=== PATIENT | female | born 1940 | race Caucasian/White ===

== ENCOUNTER 2017-11-29 10:38 | Observation (INO) | payer OTHER, BC ==
[2017-11-29] MEDS ORDERED: NS 1,000 ML IV ONE (11:32)
[2017-11-29] MEDS ORDERED: diphenhydrAMINE 25 MG CAP PO ONE ×2 (11:32→12:12)
[2017-11-29] MEDS ORDERED: ceFAZolin 2 GM/DEXTROSE 100 ML IV ONE (11:32)
[2017-11-29] MEDS ORDERED: BACITRACIN IRRIGATION/NS 50,000 UNITS/1,000 ML BTL IRR ONE (11:32)
[2017-11-29] MEDS ORDERED: DIAZEPAM 5 MG TAB PO ONE (11:32)
--- NOTE | 2017-11-29 11:49 | PDHPUP ---
History & Physical Update H&P update statement: This history and physical update is based on an assessment of the patient which was completed after admission or registration (within 24 hours), but prior to the surgery/procedure. H&P update: H&P reviewed & patient examined, no change in patient's condition since H&P completed
--- NOTE | 2017-11-29 11:50 | PDPROPOC ---
Sedation Plan of Care Sedation Plan of Care: vital signs stable, mental status noted, patient educated of risks, benefits, alternatives, patient can tolerate sedation ASA Classification: ASA 2 Planned drugs: fentanyl, midazolam Mallampati Score: Class 1 Mallampati Reference Image: Patient passed 3-3-2 rule?: Yes
--- NOTE | 2017-11-29 12:07 | CPEKG ---
Heart Rate: 84 RR Interval: 714 QRSD Interval: 104 QT Interval: 396 QTC Interval: 469 QRS [place]: 148 T Wave [place]: -76 EKG Severity - ABNORMAL ECG - EKG Impression: ATRIAL FIBRILLATION, V-RATE 74-97 EKG Impression: PROBABLE RIGHT VENTRICULAR HYPERTROPHY EKG Impression: BORDERLINE T ABNORMALITIES, INFERIOR LEADS Electronically Signed By: Candelario Ojeda 01-Dec-2017 07:31:22
[2017-11-29] MEDS ORDERED: DIAZEPAM 5 MG TAB ONE (12:12)
[2017-11-29] MEDS ORDERED: VANCOMYCIN PHARMACY TO DOSE MISC SCH (12:45)
[2017-11-29 12:50] LABS: PLATELET COUNT 207 10^3/uL (150-400)
[2017-11-29 12:53] LABS: INR 1.73 (0.83-1.16); PROTIME(PATIENT) 20.4 SEC (12.0-15.0)
[2017-11-29] MEDS ORDERED: VANCOMYCIN 1.5 GM in NS 250 ML IV ONE (13:00)
[2017-11-29] MEDS ORDERED: LIDOCAINE 1% 300 MG/30 ML SDV ONE (13:28)
[2017-11-29] MEDS ORDERED: IOPAMIDOL (ISOVUE-300) 50 ML VIAL ONE (13:28)
[2017-11-29] MEDS ORDERED: fentaNYL 100 MCG/2 ML INJ ONE ×2 (13:29→14:26)
[2017-11-29] MEDS ORDERED: LIDO/EPI 1% **for epidural** 30 ML SDV ONE (13:29)
[2017-11-29] MEDS ORDERED: BUPIVACAINE 0.5% 30 ML SDV ONE (13:29)
[2017-11-29] MEDS ORDERED: MIDAZOLAM 2 MG/2 ML VIAL ONE ×2 (13:29)
--- NOTE | 2017-11-29 14:57 | PDCTREPORT ---
Cardiothoracic Procedure Rpt Cardiothoracic Procedure Report: Procedure: Implantation of a single-chamber pacemaker. Indications syncope, atrial fibrillation with greater than 6 sec pauses. After obtaining informed consent patient brought to the cardiac catheterization lab in the fasting state INR was 1.7. The left subclavian fossa was sterilely prepped and draped and infiltrated with 2% xylocaine. Venogram was performed revealing a widely patent vein on the left side. Patient's anatomy is distorted secondary to shoulder surgery and mastectomy. Using a 10 blade an incision was made through the skin. Using a combination of sharp and blunt dissection the Bovie catheter a pacemaker pocket was created. Bacitracin soaked sponge was placed in the pocket. Using an 18 gauge percutaneous needle attempts were made to cannulate the subclavian vein under fluoroscopy. Multiple attempts were made. Subclavian artery was entered x3. Ultimately subclavian vein was appropriately entered and a guidewire advanced into the right heart. Under fluoroscopy there was no pneumothorax. Bleeding was well controlled in the pocket. Patient was stable hemodynamically. Using 8 Swedish safety sheath lead was advanced into the right ventricular septum. Appropriate sensitivities and thresholds were confirmed and the sheath was torn away. The lead was secured to the fascia using 0 Ethibond x2. Generator was delivered to the field and attached to the lead. Set screw was tightened per industry standards. The pocket was copiously irrigated with bacitracin after removing the sponge. The device was coiled into the pocket. Three-layer closure was used to close the incision. Pressure dressing was applied the patient is taken to recovery for continued care. Stat chest x-ray will be reviewed primarily. Serial hematocrits will be followed. Ventricular capture was at 0.5 volts with a pulse with a 0.4 millisecond sensing was 6.3 m V. Impedance was 690 Ohms. The lead is a tendril MPI serial number [id number]. The device is an Assurity MRI serial [id number]. Conclusions: Successful implantation of a single-chamber pacemaker Complications: Arterial stick x3. Difficult anatomy requiring multiple attempts at access. Plan to rule out pneumothorax. Follow for blood loss. Clinical follow-up in the PCU.
--- NOTE | 2017-11-29 16:02 | CPEKG ---
Heart Rate: 86 RR Interval: 698 QRSD Interval: 100 QT Interval: 412 QTC Interval: 493 QRS [place]: 114 T Wave [place]: -85 EKG Severity - ABNORMAL ECG - EKG Impression: ATRIAL FIBRILLATION, V-RATE 69-124 EKG Impression: PROBABLE RIGHT VENTRICULAR HYPERTROPHY EKG Impression: BORDERLINE T ABNORMALITIES, INFERIOR LEADS EKG Impression: BORDERLINE PROLONGED QT INTERVAL Electronically Signed By: Candelario Ojeda 01-Dec-2017 07:31:29
[2017-11-29] MEDS ORDERED: PRAVASTATIN SODIUM 20 MG TAB PO SCH (21:00)
[2017-11-30] MEDS: TIMOLOL 0.5% 15 ML OPHT.BTL EACHEYE SCH ×2 (00:15→08:06)
[2017-11-30 07:22] VITALS: BP 108/81
[2017-11-30] MEDS ORDERED: DIMETHICONE TP SCH (09:00)
[2017-11-30] MEDS ORDERED: FUROSEMIDE 20 MG TAB PO SCH (09:00)
--- NOTE | 2017-11-30 10:04 | SOAPPROG ---
SOAP Progress Note Assessment/Plan: Assessment: 1. Sick sinus syndrome status post implantation of a single-chamber pacemaker 2. Atrial fibrillation Procedures: Implantation of a single-chamber pacemaker Stable hemodynamics overnight. Postprocedure chest x-ray revealed no pneumothorax despite complexity of procedure. H and H remained stable. Device working appropriately this morning. Delayed x-ray for delayed pneumothorax. Home with one-week follow-up for wound care. Resume anticoagulation 11/30/17 10:02 Subjective: No pain, no shortness of breath, no cough. Cardiac review of systems is negative for chest pain, shortness of breath, PND , orthopnea, palpitations, syncope, near syncope, edema. Objective: Vital Signs Temp Pulse Resp BP Pulse Ox 36.8 C 75 18 108/81 H 96 11/30/17 07:21 11/30/17 07:21 11/30/17 07:21 11/30/17 07:21 11/30/17 07:21 Laboratory Results 11/30/17 07:20 11/29/17 12:15 11/29/17 11/30/17 12/01/17 05:59 05:59 05:59 Intake Total 500 Balance 500 PT 20.4 SEC (12.0-15.0) H 11/29/17 12:15 INR 1.73 (0.83-1.16) H 11/29/17 12:15 Physical Exam - Physical Exam General Appearance: alert, no apparent distress Neck: non-tender, full range of motion Respiratory: chest non-tender, lungs clear Cardiac/Chest: irregularly irregular (Pacer site free of erythema/edema/bleeding ) ICD10 Worksheet Patient Problems: Problems Problem Status Onset Atrial fibrillation Acute Pacemaker Acute Sick sinus syndrome Acute Syncope Acute - ICD10 Problem Qualifiers (1) Atrial fibrillation (2) Sick sinus syndrome (3) Pacemaker (4) Syncope Review of Systems - Review of Systems Constitutional: denies: chills, fever EENTM: no symptoms reported Respiratory: no symptoms reported Cardiac: no symptoms reported Gastrointestinal/Abdominal: no symptoms reported Genitourinary: no symptoms Musculoskelatal: no symptoms Skin: no symptoms Neurological: no symptoms Hematologic/Lymphatic: no symptoms reported Immunologic/allergic: no symptoms reported All Other Systems: Reviewed and Negative
--- NOTE | 2017-11-30 13:25 | GDS ---
[f rep st] DISCHARGE SUMMARY DISCHARGE DIAGNOSES: 1. Significant pauses greater than 6 seconds, status post single-chamber permanent pacemaker on this admission. 2. History of moderate mitral stenosis. 3. History of pulmonary hypertension. 4. History of permanent atrial fibrillation. 5. 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 PROCEDURES: 1. 11/29/2017, single-chamber permanent pacemaker implantation with a [facility] outpatient phlebotomist. 2. Serial chest x-rays that show stable positioning. PHYSICIAN: Dr. Praful Farah BRIEF HISTORY: Please see dictated H and P from our office for complete details. In brief, the brie ent is a 77-year-old female with a history of moderate mitral stenosis, pulmonary hypertension, perma nent atrial fibrillation, hypertension, dyslipidemia, diabetes, sleep apnea, who presented for evalua tion after having noted several episodes of syncope on outpatient monitoring. During an EGD, she was noted to have 6-8 second pauses. Additionally, she has had syncope after drinking cold water. Opti ons were reviewed, and patient was agreeable to permanent pacer for treatment of her syncope. This w as performed on 11/29/2017. On day of discharge, patient denies any pacer site pain. No chest pain or dyspnea. PHYSICAL EXAM: VITAL SIGNS: On day of discharge, blood pressure 108/81, heart rate 75, respirations 18, O2 saturation 96% on 2 L/minute, temp of 98.3 degrees Fahrenheit. GENERAL: She is a pleasant f emale in no apparent distress. HEENT: Normocephalic, atraumatic. HEART: Regular rate and rhythm. LUNGS: Clear. LABORATORY DATA: CBC with WBC 7.76, hemoglobin 14.8, hematocrit 44.9, platelet count of 177. BMP wa s sodium 141, potassium 3.8, chloride 104, CO2 25, BUN 30, creatinine 1.1, glucose of 126. RESULTS PENDING: None. DIET: Low-salt. ACTIVITY: Left arm precautions were reviewed. DISCHARGE MEDICATIONS: Please see med reconciliation for complete details. She is being continued o n her home medications. She is advised to start warfarin tomorrow. DISCHARGE INSTRUCTIONS: 1. Arm precautions. 2. Please have INR checked in 5 days' time. 3. Follow up with Dr. [facility] in 1 week's time. /[id number]/MODL
== END 2017-11-30 11:48 | disposition home or self-care (01) ==
LOC: FCATH 10:38 → F2W 15:43
PROVIDERS: ADMIT Internal Medicine Interventional Cardiology; ATTEND Internal Medicine Interventional Cardiology
PROC: 02HK3JZ Insertion of Pacemaker Lead into Right Ventricle, Percutaneous Approach (ICD-10-PCS; principal; 2017-11-29)
PROC: 0JH604Z Insertion of Pacemaker, Single Chamber into Chest Subcutaneous Tissue and Fascia, Open Approach (ICD-10-PCS; principal; 2017-11-29)
DX: I49.5 Sick sinus syndrome (principal); I48.91 Unspecified atrial fibrillation; Z79.01 Long term (current) use of anticoagulants; I10 Essential (primary) hypertension; I27.21 Secondary pulmonary arterial hypertension; E11.9 Type 2 diabetes mellitus without complications; E78.5 Hyperlipidemia, unspecified; E66.9 Obesity, unspecified; G47.33 Obstructive sleep apnea (adult) (pediatric); Z90.12 Acquired absence of left breast and nipple
CPT/HCPCS: 33207; 71045; 71046; 93005; C1786; C1898; J0690; J2250; J3010; J3370; Q9967

== ENCOUNTER → 2017-12-30 | Outpatient (CLI) | payer OTHER, BC | LOC: BHFA 11:30 | PROVIDERS: ATTEND Internal Medicine Cardiovascular Disease | DX: I05.0 Rheumatic mitral stenosis (principal) ==